=== PATIENT | female | born 1990 | race Caucasian/White ===

== ENCOUNTER 2017-04-23 07:49 | Emergency (ER) | payer SELFPAY ==
[~2017-04-23] VITALS: Ht 165.1 cm; Wt 97.1 kg
[2017-04-23 07:52] VITALS: BP 126/86
== END 2017-04-23 08:05 | disposition left against medical advice (07) ==
LOC: EME 07:49
DX: R07.9 Chest pain, unspecified (principal); R05 Cough; R06.02 Shortness of breath; Z53.21 Procedure and treatment not carried out due to patient leaving prior to being seen by health care provider